=== PATIENT | male | born 1975 | race Caucasian/White ===

== ENCOUNTER 2018-02-03 15:20 | Emergency (ER) | payer MEDICAID ==
[2018-02-03 15:28] VITALS: BP 104/66
[2018-02-03] MEDS ORDERED: NORMAL SALINE 1000 ML 1,000 ML IV PRN (15:35)
[2018-02-03] MEDS ORDERED: INSULIN LISPRO 100 UNIT/ML 3 ML VIAL SUBCUT ONE (15:39)
--- NOTE | 2018-02-03 15:39 | ER Document Report ---
ED Medical Screen (RME) - General Chief Complaint: Medication Refill Stated Complaint: MEDICATION REFILL Notes: Patient is a 42-year-old male, past medical history well-controlled type 1 diabetes with insulin pump, presents after he has been out of his Humalog for his insulin pump for the past 12 hours. He tried calling his primary care physician and personal lines sales rep, but they did not refill the insulin. He was told to go the ER for further evaluation. Patient's Accu-Chek is 336 on arrival to the ER. PE: Tachycardia, RLQ insulin reservoir I have greeted and performed a rapid initial assessment of this patient. A comprehensive ED assessment and evaluation of the patient, analysis of test results and completion of the medical decision making process will be conducted by additional ED providers. TRAVEL OUTSIDE OF THE [place] IN LAST 30 DAYS: No - Related Data Allergies/Adverse Reactions: No Known Allergies Allergy (Unverified 02/03/18 15:22) Past Medical History Endocrine Medical History: Reports: Hx Diabetes Mellitus Type 1 Past Surgical History: Reports: Hx Orthopedic Surgery - finger Physical Exam - Vital signs Vitals: Temp Pulse Resp BP Pulse Ox 98.0 F 105 H 20 104/66 97 02/03/18 15:25 02/03/18 15:25 02/03/18 15:25 02/03/18 15:25 02/03/18 15:25 Course - Vital Signs Vital signs: Temp Pulse Resp BP Pulse Ox 98.0 F 105 H 20 104/66 97 02/03/18 15:25 02/03/18 15:25 02/03/18 15:25 02/03/18 15:25 02/03/18 15:25 Doctor's Discharge - Discharge Referrals: WILLIAM WALTON DO [Primary Care Provider] - Follow up as needed
--- NOTE | 2018-02-03 16:31 | ER Document Report ---
ED General - General Chief Complaint: Medication Refill Stated Complaint: MEDICATION REFILL Time Seen by Provider: 02/03/18 15:40 Mode of Arrival: Ambulatory Information source: Patient Notes: This is a 42-year-old man with a history of insulin requiring diabetes who ran out of his diabetic medicine and comes in wanting a refill. The patient apparently has been in contact with her doctor and is in between doctors but has been notifying his previous physician for refill as well as the physician he has a next update with an is not gotten a prescription. He denies any nausea , vomiting. He was seen in the triage area and felt to be tachycardic and they wanted to give him IV fluids which the patient is adamantly against. He denies chest pain, shortness of breath, abdominal pain, nausea or vomiting. He seems like he is well versed with his disease and states he does not have any of the symptoms that he has had in the past when he has had DKA. TRAVEL OUTSIDE OF THE [place] IN LAST 30 DAYS: No - HPI Onset: Just prior to arrival Onset/Duration: Gradual Quality of pain: No pain Severity: None Pain Level: Denies Associated symptoms: denies: Chest pain, Fever, Nausea, Vomiting, Shortness of breath Exacerbated by: Denies Relieved by: Denies Similar symptoms previously: Yes Recently seen / treated by doctor: No - Related Data Allergies/Adverse Reactions: No Known Allergies Allergy (Verified 02/03/18 15:36) Past Medical History - General Information source: Patient - Social History Smoking Status: Never Smoker Cigarette use (# per day): No Chew tobacco use (# tins/day): No Frequency of alcohol use: None Drug Abuse: None Lives with: Family Family History: None Patient has suicidal ideation: No Patient has homicidal ideation: No - Past Medical History Cardiac Medical History: Reports: None Pulmonary Medical History: Reports: None Endocrine Medical History: Reports: Hx Diabetes Mellitus Type 1 Renal/ Medical History: Denies: Hx Peritoneal Dialysis Past Surgical History: Reports: Hx Orthopedic Surgery - finger Review of Systems - Review of Systems Constitutional: denies: Chills, Fever EENT: No symptoms reported Cardiovascular: No symptoms reported Respiratory: No symptoms reported Gastrointestinal: No symptoms reported Genitourinary: No symptoms reported Male Genitourinary: No symptoms reported Musculoskeletal: No symptoms reported Skin: No symptoms reported Hematologic/Lymphatic: No symptoms reported Neurological/Psychological: No symptoms reported Physical Exam - Vital signs Vitals: Temp Pulse Resp BP Pulse Ox 98.0 F 105 H 20 104/66 97 02/03/18 15:25 02/03/18 15:25 02/03/18 15:25 02/03/18 15:25 02/03/18 15:25 Notes: Physical exam: GENERAL: 42-year-old female, alert and oriented 3, no acute distress HEAD: Atraumatic, normocephalic. EYES: Extraocular movements intact, sclera anicteric, conjunctiva are normal. ENT: Moist mucous membranes. NECK: Normal range of motion, supple EXTREMITIES: Normal range of motion, no pitting or edema. No clubbing or cyanosis. NEUROLOGICAL: Cranial nerves II through XII grossly intact. Normal speech, moving all extremities. PSYCH: Normal mood, normal affect. SKIN: Warm, Dry, normal turgor, no rashes or lesions noted. Course - Re-evaluation Re-evalutation: 02/03/18 16:44 Nurses had prior to my evaluation attempted IV fluids and blood work. Patient has adamantly against it at the time. I sat down with him and had a discussion with him and his family for a while and ultimately he wants a prescription with some needles. He does have follow-up with the primary care doctor. I have given him explicit instructions to return if he has any nausea, vomiting, abdominal pain or feels that he may be slipping in the DKA. 02/03/18 16:45 - Vital Signs Vital signs: Temp Pulse Resp BP Pulse Ox 98.0 F 105 H 20 104/66 97 02/03/18 15:25 02/03/18 15:25 02/03/18 15:25 02/03/18 15:25 02/03/18 15:25 - Laboratory Laboratory results interpreted by me: 02/03/18 15:32 POC Glucose 358 H Discharge - Discharge Clinical Impression: Diabetes Condition: Stable Disposition: HOME, SELF-CARE Additional Instructions: As discussed, continue with insulin. I did call the pharmacy and they are expecting you. I wrote the needles that the pharmacy recommended. Follow-up with your doctor as planned. Return to the emergency room for any nausea, vomiting, not feeling well or any concerns that you may be going into DKA. Prescriptions: Insulin Lispro [Humalog] 100 unit SQ ASDIR PRN #30 ml PRN Reason: Referrals: WILLIAM WALTON DO [Primary Care Provider] - Follow up as needed
== END 2018-02-03 16:34 | disposition home or self-care (01) ==
LOC: ER 15:20
DX: Z76.0 Encounter for issue of repeat prescription (principal); E10.9 Type 1 diabetes mellitus without complications
CPT/HCPCS: 82962; 99281; J1815

== ENCOUNTER 2018-03-09 21:19 | Emergency (ER) | payer MEDICAID ==
[2018-03-09 22:15] VITALS: BP 151/99
[2018-03-09] MEDS ORDERED: INSULIN LISPRO 100 UNIT/ML 3 ML VIAL SUBCUT ONE (22:57)
--- NOTE | 2018-03-09 23:08 | ER Document Report ---
HPI - HPI Pain Level: 4 Notes: Patient is a 42-year-old male with a history of insulin-dependent diabetes who presents to the ED with questing an injection of his Humalog and a prescription for refill as he ran out earlier today. Patient states that his sugars have been running in the 3-400s and is currently 441 taken when I was in the room. Patient states that he knows his illness well and has had a history of DKA in the past, but states that this is not DKA for him. Patient states that he is eating and drinking without any difficulties. He is urinating normally and having normal bowel movements. He denies any drug allergies. He has no other concerns or complaints at this time. Denies any headache, fever, neck pain, URI , sore throat, chest pain, palpitations, syncope, cough, shortness of breath, wheeze, dyspnea, abdominal pain, nausea/vomiting/diarrhea, urinary retention, dysuria, hematuria, or rash. - ROS Systems Reviewed and Negative: Yes All other systems reviewed and negative - CONSTITUTIONAL Constitutional: DENIES: Fever, Chills - EENT EENT: DENIES: Sore Throat, Ear Pain, Eye problems - NEURO Neurology: DENIES: Headache, Weakness, Vision blurred, Dizzinesss / Vertigo - CARDIOVASCULAR Cardiovascular: DENIES: Chest pain - RESPIRATORY Respiratory: DENIES: Trouble Breathing, Coughing - GASTROINTESTINAL Gastrointestinal: DENIES: Abdominal Pain, Black / Bloody Stools - URINARY Urinary: DENIES: Dysuria, Urgency, Frequency - MUSCULOSKELETAL Musculoskeletal: DENIES: Extremity pain Past Medical History - Social History Smoking Status: Unknown if Ever Smoked Family History: None Patient has suicidal ideation: No Patient has homicidal ideation: No Endocrine Medical History: Reports: Hx Diabetes Mellitus Type 1 Renal/ Medical History: Denies: Hx Peritoneal Dialysis Past Surgical History: Reports: Hx Orthopedic Surgery - finger Vertical Provider Document - CONSTITUTIONAL Agree With Documented VS: Yes Notes: PHYSICAL EXAMINATION: GENERAL: Well-appearing, well-nourished and in no acute distress. LUNGS: Breath sounds clear to auscultation bilaterally and equal. No wheezes rales or rhonchi. HEART: Regular rate and rhythm without murmurs, rubs, gallops. ABDOMEN: Soft, nontender, nondistended abdomen. No guarding, no rebound. No masses appreciated. Normal bowel sounds present. No CVA tenderness bilaterally. Musculoskeletal: FROM to passive/active. Strength 5+/5. Extremities: No cyanosis, clubbing, or edema b/l. Peripheral pulses 2+. Capillary refill less than 3 seconds. NEUROLOGICAL: Normal speech, normal gait. PSYCH: excitable, anxious mood. normal affect. SKIN: Warm, Dry, normal turgor, no rashes or lesions noted. - INFECTION CONTROL TRAVEL OUTSIDE OF THE [place] IN LAST 30 DAYS: No Course - Re-evaluation Re-evalutation: 03/09/18 23:05 Patient is an afebrile, well-hydrated, 42-year-old male who presents to the ED with elevated glucose and requesting medication refill of his Humalog. Vitals are acceptable without any significant tachycardia, tachypnea, or hypoxia. PE is otherwise unremarkable. Patient's glucose at the bedside was 441 by his meter and 430 by ours. Patient is nontoxic-appearing and is tolerating p.o. without difficulties. Patient appears well. Pt adamantly declined any blood work or urine. Low suspicion for any DKA, sepsis, meningitis, severe dehydration, respiratory compromise, or other systemic emergent condition at this time. Patient is aware that condition can change from initial presentation and he needs to monitor symptoms closely and seek medical attention with any acute changes. 20 units of Humalog was given subc today. I will send him home with a prescription for Humalog that he may use for his insulin pump. Recheck with your PCM in 3-5 days. Return to the ED with any worsening/concerning symptoms otherwise as reviewed in discharge. Patient is in agreement. - Vital Signs Vital signs: Temp Pulse Resp BP Pulse Ox 98.0 F 111 H 16 151/99 H 99 03/09/18 22:14 03/09/18 22:14 03/09/18 22:14 03/09/18 22:14 03/09/18 22:14 Discharge - Discharge Clinical Impression: Elevated glucose Condition: Stable Disposition: HOME, SELF-CARE Additional Instructions: Maintain adequate fluid and food intake Take home medications as directed Low sugar/carb diet Exercise regularly Weight control Monitor blood glucose daily and keep a log Monitor symptoms for any acute changes Recheck with your PCM in 3-5 days Return to the ED with any worsening symptoms and/or development of fever, headache, chest pain, palpitations, syncope, shortness of breath, trouble breathing, abdominal pain, n/v/d, blood in stool/urine, loss of control of bowel /bladder, urinary retention, muscle weakness/paralysis, numbness/tingling, or other worsening symptoms that are concerning to you. Prescriptions: Insulin Lispro [Humalog] 100 unit SQ ASDIR PRN #1 cartridge PRN Reason: Referrals: WILLIAM WALTON DO [Primary Care Provider] - Follow up in 3-5 days
== END 2018-03-09 23:30 | disposition home or self-care (01) ==
LOC: ER 21:19
DX: E10.65 Type 1 diabetes mellitus with hyperglycemia (principal); Z79.4 Long term (current) use of insulin
CPT/HCPCS: 99282; 82962; J1815

== ENCOUNTER 2018-04-19 02:54 | Emergency (ER) | payer MEDICAID ==
[2018-04-19 03:14] VITALS: BP 145/87
--- NOTE | 2018-04-19 03:54 | ER Document Report ---
ED General - General TRAVEL OUTSIDE OF THE [place] IN LAST 30 DAYS: No - General Chief Complaint: Medication Refill Stated Complaint: NEEDS MEDICATION REFILL Time Seen by Provider: 04/19/18 03:41 Notes: Patient is a 43-year-old male who is a type I diabetic that comes to the emergency department for chief complaint of running out of insulin. He states that for the past 2 months he has had a lot of problems initially he was discharged from his primary care provider because he states that they were trying to cut down on their patient volume, he states that he initially was supposed to be seen at [facility] but now they no longer take his insurance, he states he does have an appointment now for June 06 with primary care and to continue to see endocrinology to manage his pump but he needs insulin to get him through until then. He states his blood glucose has started climbing up this evening, however he states he does not have any symptoms of DKA, he denies dizziness, nausea or vomiting, blurred vision, and he states he checked his urine just prior to leaving the house and there were no ketones. He denies any other complaints. (EZEQUIEL ORANTES) - Related Data Allergies/Adverse Reactions: No Known Allergies Allergy (Verified 02/03/18 15:36) Past Medical History - General Information source: Patient - Social History Smoking Status: Never Smoker Frequency of alcohol use: None Drug Abuse: None Lives with: Family Family History: None Endocrine Medical History: Reports: Hx Diabetes Mellitus Type 1 Renal/ Medical History: Denies: Hx Peritoneal Dialysis Past Surgical History: Reports: Hx Orthopedic Surgery - finger - Immunizations Immunizations up to date: Yes Hx Diphtheria, Pertussis, Tetanus Vaccination: Yes Review of Systems - Review of Systems Constitutional: No symptoms reported EENT: No symptoms reported Cardiovascular: No symptoms reported Respiratory: No symptoms reported Gastrointestinal: No symptoms reported Genitourinary: No symptoms reported Male Genitourinary: No symptoms reported Musculoskeletal: No symptoms reported Skin: No symptoms reported Hematologic/Lymphatic: No symptoms reported Neurological/Psychological: No symptoms reported Physical Exam - Vital signs Vitals: Temp Pulse Resp BP Pulse Ox 98.0 F 87 20 145/87 H 99 04/19/18 03:02 04/19/18 03:02 04/19/18 03:02 04/19/18 03:02 04/19/18 03:02 - Notes Notes: GENERAL: Alert, interacts well. No acute distress. HEAD: Normocephalic, atraumatic. EYES: Pupils equal, round, and reactive to light. Extraocular movements intact. ENT: Oral mucosa moist, tongue midline. Normal oropharyngeal exam. NECK: Full range of motion. Supple. Trachea midline. LUNGS: Clear to auscultation bilaterally, no wheezes, rales, or rhonchi. No respiratory distress. HEART: Regular rate and rhythm. No murmur ABDOMEN: Soft, non-tender. Non-distended. Bowel sounds present in all 4 quadrants. EXTREMITIES: Moves all 4 extremities spontaneously. No edema, normal radial and dorsalis pedis pulses bilaterally. No cyanosis. BACK: no cervical, thoracic, lumbar midline tenderness. No saddle anesthesia, normal distal neurovascular exam. NEUROLOGICAL: Alert and oriented x3. Normal speech. [cranial nerves II through XII grossly intact]. PSYCH: Normal affect, normal mood. SKIN: Warm, dry, normal turgor. No rashes or lesions noted. (EZEQUIEL ORANTES) Course - Re-evaluation Re-evalutation: Patient appears very knowledgeable about his medications, he is able to give me very detailed information about his insulin use and his difficulty recently with primary care provider and endocrinology causing him to run out of his medications. He does have a follow-up appointment already scheduled. He has hyperglycemia with blood glucose greater than 400, recommended labs to make sure he has no evidence of acidosis, he states he already checked his urine at home and it does not have any ketones, he does not have any symptoms at this time including no nausea or vomiting, he has no tachycardia, his mucous membranes are moist. Patient again declined with discussion of this. He states that he needs his nighttime dose of insulin, he has been detailed instructions for request of insulin prescription, he states he will come back if he worsens in any way. Because of patient's level of education and knowledge of symptoms to return for this was provided for patient and he was discharged with return precautions. Patient and state gratefulness for care. (EZEQUIEL ORANTES) - Vital Signs Vital signs: Temp Pulse Resp BP Pulse Ox 98.0 F 87 20 145/87 H 99 04/19/18 03:02 04/19/18 03:02 04/19/18 03:02 04/19/18 03:04/19/18 03:02 - Laboratory Laboratory results interpreted by me: 04/19/18 03:10 POC Glucose 468 H* Discharge - Discharge Clinical Impression: Insulin dependent diabetes mellitus, Has run out of medications Condition: Stable Disposition: HOME, SELF-CARE Additional Instructions: Use your insulin as prescribed. Follow-up with both primary care and endocrinology as planned for additional evaluation and management of your pump and diabetes. Return if you worsen including weakness, dizziness, blurry vision, nausea or vomiting, or any other concerning symptoms. Prescriptions: Insulin Lispro [Humalog Insulin 100 Unit/1 ml 3 ml Vial] 100 unit SUBCUT ASDIR PRN #90 ml PRN Reason: Referrals: WILLIAM WALTON DO [NO LOCAL MD] - Follow up as needed
[2018-04-19] MEDS ORDERED: INSULIN REG, HUMAN 100 UNIT/ML 3 ML VIAL (PYX) SUBCUT ONE (04:03)
== END 2018-04-19 04:19 | disposition home or self-care (01) ==
LOC: ER 02:54
DX: Z76.0 Encounter for issue of repeat prescription (principal); E10.9 Type 1 diabetes mellitus without complications; Z79.4 Long term (current) use of insulin
CPT/HCPCS: 99281; 82962; J1815

== ENCOUNTER 2018-08-26 18:14 | Emergency (ER) | payer MEDICAID ==
--- NOTE | 2018-08-26 19:52 | ER Document Report ---
HPI - HPI Patient complains to provider of: Medication refill Time Seen by Provider: 08/26/18 19:31 Onset: This morning Pain Level: 0 Context: Patient states that there was a mixup at his doctor's office and they only gave him one vial prescription of his insulin for his insulin pump. Patient states that he ran out of insulin today. Patient did attempt to call the doctor's office and he does have an appointment scheduled for Thursday but needs medicine to get him till Thursday. Patient states that he checked his urine and there was no ketones at home. Patient has no concern for any DKA or complication from elevated blood sugar at this time. Patient is only requesting a refill of his insulin and does not want to have any additional tests or labs performed tonight. Associated Symptoms: None. denies: Nonproductive cough, Productive cough, Fever, Headache, Nausea, Vomiting Exacerbated by: Denies Relieved by: Denies Similar symptoms previously: Yes Recently seen / treated by doctor: No - ROS ROS below otherwise negative: Yes Systems Reviewed and Negative: Yes All other systems reviewed and negative - CONSTITUTIONAL Constitutional: DENIES: Fever, Chills - EENT EENT: DENIES: Sore Throat, Congestion - CARDIOVASCULAR Cardiovascular: DENIES: Chest pain - RESPIRATORY Respiratory: DENIES: Trouble Breathing, Coughing - GASTROINTESTINAL Gastrointestinal: DENIES: Abdominal Pain, Nausea, Patient vomiting - MUSCULOSKELETAL Musculoskeletal: DENIES: Back Pain - DERM Skin Color: Normal Skin Problems: None Past Medical History - General Information source: Patient - Social History Smoking Status: Former Smoker Frequency of alcohol use: None Drug Abuse: None Lives with: Family Family History: None Patient has suicidal ideation: No Patient has homicidal ideation: No Endocrine Medical History: Reports: Hx Diabetes Mellitus Type 1 Renal/ Medical History: Denies: Hx Peritoneal Dialysis Past Surgical History: Reports: Hx Orthopedic Surgery - finger - Immunizations Immunizations up to date: Yes Hx Diphtheria, Pertussis, Tetanus Vaccination: Yes Vertical Provider Document - CONSTITUTIONAL Agree With Documented VS: Yes Exam Limitations: No Limitations General Appearance: WD/WN, No Apparent Distress - INFECTION CONTROL TRAVEL OUTSIDE OF THE [place] IN LAST 30 DAYS: No - HEENT HEENT: Atraumatic, Normal ENT Exam, Normocephalic - NECK Neck: Normal Inspection, Supple - RESPIRATORY Respiratory: Breath Sounds Normal, No Respiratory Distress - CARDIOVASCULAR Cardiovascular: Regular Rhythm, No Murmur, Tachycardia - GI/ABDOMEN Gastrointestinal: Abdomen Soft - BACK Back: Normal Inspection - MUSCULOSKELETAL/EXTREMETIES Musculoskeletal/Extremeties: HERMES GONZALES - NEURO Level of Consciousness: Awake, Alert, Appropriate Motor/Sensory: No Motor Deficit - DERM Integumentary: Warm, Dry, No Rash Course - Re-evaluation Re-evalutation: 08/26/18 19:55 Patient advised that given his history of diabetes and his tachycardia that lab work, EKG and IV fluid administration would be recommended at this time to further evaluate his condition. Patient denies any symptoms at this time. Patient states that whenever he is out of his medication that causes his blood sugar to go up and then his heart rate increases. Patient denies any chest pain dyspnea abdominal pain nausea or vomiting. Patient denies any fever. Patient denies any concerns for DKA at this time is adamantly refusing any laboratory tests or treatments. Patient states that he only wants a prescription for refill of his insulin. Patient states he has an appointment with his primary doctor on Thursday for refill of his usual medications. Patient states that there was a mess up at the office and he only received 1 vial of his insulin in which he has now run out and he thought that he had a refill and found out today that he did not. Patient has good follow-up. Patient agrees to sign refusal treatment form at this time. Patient with a family member at bedside. Will refill patient's medications at this time. Good return precautions given. - Vital Signs Vital signs: Temp Pulse Resp BP Pulse Ox 97.7 F 119 H 16 152/99 H 96 08/26/18 18:28 08/26/18 18:28 08/26/18 18:28 08/26/18 18:28 08/26/18 18:28 Discharge - Discharge Clinical Impression: Insulin dependent diabetes mellitus, Tachycardia, Medication refill Condition: Stable Disposition: HOME, SELF-CARE Additional Instructions: Return immediately for any new or worsening symptoms, or if you decide that you would like to have laboratory testing and IV fluid administration to further evaluate your condition Followup with your primary care provider on Thursday as planned Prescriptions: Insulin Lispro [Humalog Insulin (Lispro) 100 unit/mL] 1 unit INJ ASDIR PRN #1 vial PRN Reason: Referrals: WILBER HILL MD [ACTIVE STAFF] - 08/30/18
[2018-08-26 20:02] VITALS: BP 145/110
== END 2018-08-26 20:02 | disposition home or self-care (01) ==
LOC: ER 18:14
DX: E10.9 Type 1 diabetes mellitus without complications (principal); R00.0 Tachycardia, unspecified; Z79.4 Long term (current) use of insulin; Z96.41 Presence of insulin pump (external) (internal)
CPT/HCPCS: 99281

== ENCOUNTER 2019-06-26 16:05 | Emergency (ER) | payer MEDICAID ==
[2019-06-26] MEDS ORDERED: HALOPERIDOL LACTATE INJ 5 MG/1 ML VIAL IM ONE (16:30)
--- NOTE | 2019-06-26 16:37 | ER Document Report ---
ED General - General TRAVEL OUTSIDE OF THE [place] IN LAST 30 DAYS: No <WILLIAM ASKEW - Last Filed: 06/26/19 18:19> <AQUILES LENNON - Last Filed: 06/26/19 21:57> - General Chief Complaint: Low Blood Sugar Stated Complaint: LOW BLOOD SUGAR Time Seen by Provider: 06/26/19 16:22 Primary Care Provider: JOE DODGE MD [Primary Care Provider] - Follow up as needed - [facility] Notes: 44-year-old insulin-dependent diabetic reports to ED for evaluation of altered mental status associated with hypoglycemia by EMS. Family members report that patient was in his usual state of health earlier in the day. Other family members had taking a nap and found that the patient was unarousable cool to touch a palpable pulse. Stick blood sugar was around 35. They were unable to get anything into the patient orally and EMS was called. EMS administered 50% dextrose IV and got sugar up above 100. At that point the patient awakened but was combative. They attempted to physically restrain him with little success. They subsequently administered IM ketamine. He was thereafter transported to the emergency department. Limited history is been obtained from EMS but I am unable to elicit any direct history from the patient and family members have not yet arrived. (WILLIAM ASKEW) - Related Data Allergies/Adverse Reactions: No Known Allergies Allergy (Verified 08/26/18 19:42) Past Medical History - General Information source: Emergency Med Personnel Cannot obtain history due to: Altered mental status - Social History Smoking Status: Unknown if Ever Smoked Chew tobacco use (# tins/day): No Frequency of alcohol use: None Drug Abuse: None Lives with: Family Family History: None, Reviewed & Not Pertinent Patient has suicidal ideation: No Patient has homicidal ideation: No Endocrine Medical History: Reports: Hx Diabetes Mellitus Type 1 Renal/ Medical History: Denies: Hx Peritoneal Dialysis Past Surgical History: Reports: Hx Orthopedic Surgery - finger - Immunizations Immunizations up to date: Yes Hx Diphtheria, Pertussis, Tetanus Vaccination: Yes <WILLIAM ASKEW - Last Filed: 06/26/19 18:19> Review of Systems - Review of Systems -: Yes ROS unobtainable due to patient's medical condition <WILLIAM ASKEW - Last Filed: 06/26/19 18:19> Physical Exam <WILLIAM ASKEW - Last Filed: 06/26/19 18:19> - Vital signs Vitals: Resp 18 06/26/19 16:12 Notes: GENERAL: Moderately obese male appearing approximately stated age who is currently obtunded with sonorous respirations. SKIN: Skin is cool pale and dry. HEAD: Normocephalic atraumatic. EYES: Pupils are small equal and sluggishly reactive to light. Gaze is conjugate. Conjunctivae and sclerae clear. Eyes open to painful stimuli only. EARS: CANALS AND TMS CLEAR. NOSE: CLEAR. MOUTH: Gag reflex intact. Moist mucosa. Good dentition. No stridor or edema. No drooling. NECK: Supple. No masses or thyromegaly. No adenopathy. Carotids 2+ without bruits. No JVD. BACK: Symmetrical without tenderness. CHEST: Respirations unlabored. Breath sounds clear and symmetrical. HEART: Regular rhythm. No murmur gallop or rub. ABDOMEN: Soft nontender without masses, organomegaly or rebound. Bowel sounds normally active. No bruits. GENITALIA: Deferred. EXTREMITIES: Broken superficial varicosities around both ankles. No edema. No calf tenderness. Cap refill less than 1.5 seconds. Dorsalis pedis and posterior tibial pulses 3+ and symmetrical. * NEUROLOGICAL: GCS 9 2GENERAL: Frail elderly female appearing in no acute distress. SKIN: Pale. Good turgor. Ecchymoses of pretibial area bilaterally. HEAD: Bitemporal wasting. EYES: PERRLA. Conjunctivae pale and sclerae clear. EARS: CANALS AND TMS CLEAR. NOSE: CLEAR. MOUTH: Moist mucosa. Good dentition. No stridor or edema. No drooling. THROAT: Clear. NECK: Supple. No masses or thyromegaly. No adenopathy. Carotids 2+ without bruits. No JVD. BACK: Symmetrical without tenderness. Minimal dorsal kyphosis present. CHEST: Respirations unlabored. Breath sounds with symmetrical dry rales throughout. HEART: Regular rhythm. No murmur. S3 gallop present. No rub. ABDOMEN: Soft nontender without masses, organomegaly or rebound. Bowel sounds normally active. No bruits. GENITALIA: Deferred. 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 2+ pretibial edema bilaterally. No calf tenderness. Cap refill less than 1.5 seconds. Dorsalis pedis and posterior tibial pulses 3+ and symmetrical. * NEUROLOGICAL: GCS 9 (eyes 2 plus verbal 2 plus motor 5 ). Moves extremities symmetrically. (WILLIAM ASKEW) Course - Laboratory Result Diagrams: 06/26/19 16:30 06/26/19 16:30 - EKG Interpretation by Me EKG shows normal: Sinus rhythm - 65, Benld - 90, Intervals - normal Rate: Normal Rhythm: NSR <WILLIAM ASKEW - Last Filed: 06/26/19 18:19> - Laboratory Result Diagrams: 06/26/19 16:30 06/26/19 16:30 <AQUILES LENNON - Last Filed: 06/26/19 21:57> - Re-evaluation Re-evalutation: 06/26/19 19:[address] Askew, patient reexamined, patient was initially sleeping, relatively easily awakened, he was disoriented to place and time however easily reoriented. Still repeats that he did not have anything to eat today and his blood sugar was low so that is why he was confused earlier. Denies being aggressive, family members then come to the room and confirm to him that he was being aggressive as does Dr. Askew who gave him Haldol after arrival. CT scan of the head is negative, no focal deficits, patient will be fed and we will attempt to ambulate him. If patient remains neurologically intact and blood sugar remains normal patient will be discharged home. Did have an extensive discussion with him about the fact that his urine drug screen is positive for opiates although I see no record that he is prescribed these, patient states they are prescribed by in [place] but he cannot tell me who, check of the records does not reveal anybody actively prescribe him narcotics at this time, states that he has not been prescribed narcotics for his back pain in several months. Discussed with both of them that it is incredibly dangerous for a diabetic to be using opiates that are not prescribed to them. 06/26/19 19:19 CBC shows leukocytosis at 12.7, coags normal, VBG normal, glucose normal at 137 after EMS gave him dextrose, ammonia undetectable, urinalysis shows trace ketones, urine drug screen shows opiates and marijuana, EKG is nonischemic. 06/26/19 21:53 Patient is now wide awake, able to ambulate, able to sit on the bed and urinate without difficulty. Patient has been able to eat here. Patient's blood sugar has steadily risen, patient has been able to put his insulin pump back on and started working again. Once again I did discuss with the patient and his that I am concerned by the positive urine drug screen for opiates and the fact that he states he is having medications prescribed but I see no record of this in the computer and that he is unable to tell me from home he is receiving these medications. Also discussed with patient that it is very important that he follow-up with his primary care physician as an outpatient to continue to fine-tune his insulin pump. states that he has been missing his appointments recently. Currently presentation is consistent with hypoglycemic seizure. (AQUILES LENNON) - Vital Signs Vital signs: Temp Pulse Resp BP Pulse Ox 97.7 F 22 H 144/90 H 99 06/26/19 16:54 06/26/19 19:23 06/26/19 19:23 06/26/19 19:23 - Laboratory Laboratory results interpreted by me: 06/26/19 06/26/19 06/26/19 16:09 16:30 16:30 WBC 12.7 H Lymph % (Auto) 8.7 L Absolute Neuts (auto) 10.4 H Seg Neutrophils % 82.0 H Glucose 137 H POC Glucose 139 H Ammonia Urine Ketones Urine Urobilinogen 06/26/19 06/26/19 06/26/19 16:55 17:10 19:30 WBC Lymph % (Auto) Absolute Neuts (auto) Seg Neutrophils % Glucose POC Glucose 275 H Ammonia < 8.7 L Urine Ketones TRACE H Urine Urobilinogen 2.0 H 06/26/19 21:12 WBC Lymph % (Auto) Absolute Neuts (auto) Seg Neutrophils % Glucose POC Glucose 300 H Ammonia Urine Ketones Urine Urobilinogen Discharge <WILLIAM ASKEW - Last Filed: 06/26/19 18:19> <AQUILES LENNON - Last Filed: 06/26/19 21:57> - Discharge Clinical Impression: Hypoglycemia due to type 1 diabetes mellitus, Opiate use Condition: Stable Disposition: HOME, SELF-CARE Additional Instructions: It is important that you eat before you go to bed. It is important that you check your blood sugar on a regular basis including before you go to bed. If your blood sugar is low you need to eat something before you go to sleep. It is also important that you eat throughout the day while you are awake. You have an insulin pump which means your body is steadily receiving insulin whether you eat or not. This puts you at high risk for going into another diabetic coma or having another seizure due to low blood sugar if you do not eat. I am also concerned because your urine drug screen showed that you have opiates in your system. You have told me that you are prescribed these however I cannot find any evidence in the computer of a doctor prescribing these for you recently. Your is also unaware of any doctor continuing to prescribe these for you. If you are using narcotic medication that you are not prescribed it puts you at a high risk for complications from your diabetes particularly because if you take opiates and they make you fall asleep you might not eat and then you could from low blood sugar. You do need to follow-up with your primary care physician to make sure you are receiving an appropriate dose of insulin through your insulin pump. Referrals: JOE DODGE MD [Primary Care Provider] - Follow up as needed
[2019-06-26 16:47] LABS: VENOUS BLOOD BASE EXCESS 3.3 mmol/L; VENOUS BLOOD HCO3 31.3 mmol/L (20-32); VENOUS BLOOD PCO2 61.5 mmHg (35-63); VENOUS BLOOD PH 7.33 (7.30-7.42)
[2019-06-26 16:50] LABS: ABSOLUTE BASOPHILS # (AUTO) 0.1 10^3/uL (0.0-0.2); ABSOLUTE EOSINOPHILS # (AUTO) 0.5 10^3/uL (0.0-0.6); ABSOLUTE LYMPHOCYTES (AUTO) 1.1 10^3/uL (0.5-4.7); ABSOLUTE MONOCYTES (AUTO) 0.6 10^3/uL (0.1-1.4); ABSOLUTE NEUT (AUTO) 10.4 10^3/uL (1.7-8.2); BASOPHILS % (AUTO) 0.6 % (0-2); EOSINOPHILS % (AUTO) 3.6 % (0-6); HEMATOCRIT 43.9 % (37.9-51.0); HEMOGLOBIN 14.9 g/dL (13.5-17.0); INTERNATIONAL RATION (INR) 0.94; LYMPHOCYTES % (AUTO) 8.7 % (13-45); MEAN CORPUSCULAR HEMOGLOBIN 27.7 pg (27.0-33.4); MEAN CORPUSCULAR HGB CONC 33.8 g/dL (32.0-36.0); MEAN CORPUSCULAR VOLUME 82 fl (80-97); MONOCYTES % (AUTO) 5.1 % (3-13); PLATELET COUNT 287 10^3/uL (150-450); PROTHROMBIN TIME 12.5 SEC (11.4-15.4); RED BLOOD COUNT 5.36 10^6/uL (4.35-5.55); RED CELL DISTRIBUTION WIDTH 13.7 % (11.5-14.0); TOTAL CELLS COUNTED % (AUTO) 100 %; WHITE BLOOD COUNT 12.7 10^3/uL (4.0-10.5)
[2019-06-26 17:07] LABS: ALBUMIN 3.8 g/dL (3.5-5.0); ALKALINE PHOSPHATASE 85 U/L (38-126); ANION GAP 10 (5-19); ASPARTATE AMINO TRANSFERASE 25 U/L (17-59); BILIRUBIN,DIRECT 0.1 mg/dL (0.0-0.4); BILIRUBIN,TOTAL 0.3 mg/dL (0.2-1.3); BLOOD UREA NITROGEN 14 mg/dL (7-20); CALCIUM 8.9 mg/dL (8.4-10.2); CARBON DIOXIDE 29 mmol/L (22-30); CHLORIDE 99 mmol/L (98-107); GLUCOSE 137 mg/dL (75-110); POTASSIUM 3.6 mmol/L (3.6-5.0)
[2019-06-26 17:09] LABS: AMORPHOUS SEDIMENT,URINE TRACE /HPF; APPEARANCE,URINE SLIGHTLY-CLOUDY; BILIRUBIN,URINE NEGATIVE (NEGATIVE); COLOR,URINE YELLOW; GLUCOSE, URINE NEGATIVE (NEGATIVE); KETONES,URINE TRACE mg/dL (NEGATIVE); LEUKOCYTE ESTERASE,URINE NEGATIVE (NEGATIVE); NITRITE,URINE NEGATIVE (NEGATIVE); PROTEIN,URINE NEGATIVE (NEGATIVE); URINE SPECIFIC GRAVITY 1.018
[2019-06-26 17:22] LABS: URINE AMPHETAMINES SCREEN NEGATIVE; URINE BARBITURATES SCREEN NEGATIVE; URINE BENZODIAZEPINES SCREEN NEGATIVE; URINE COCAINE SCREEN NEGATIVE; URINE MARIJUANA (THC) SCREEN UNCONFIRMED POSITIVE; URINE METHADONE SCREEN NEGATIVE; URINE PHENCYCLIDINE SCREEN NEGATIVE
--- NOTE | 2019-06-26 18:57 | RADIOLOGY REPORT (SQ) ---
EXAM DESCRIPTION: CT HEAD WITHOUT COMPLETED DATE/TIME: 06/26/2019 6:31 pm REASON FOR STUDY: ams COMPARISON: None. TECHNIQUE: Axial images acquired through the brain without intravenous contrast. Images reviewed wi th bone, brain and subdural windows. Images stored on PACS. All CT scanners at this facility use dose modulation, iterative reconstruction, and/or weight based d osing when appropriate to reduce radiation dose to as low as reasonably achievable (ALARA). [facility]: Dose Right [facility]: CareDose [facility]: Dose Right [facility]: Teradose 4D [facility]: Smart [place] RADIATION DOSE: CT Rad equipment meets quality standard of care and radiation dose reduction techniq ues were employed. CTDIvol: 53.2 mGy. DLP: 1097 mGy-cm. mGy. LIMITATIONS: None. FINDINGS: VENTRICLES: Normal size and contour. CEREBRUM: No masses. No hemorrhage. No midline shift. No evidence for acute infarction. Normal gra y/white matter differentiation. No areas of low density in the white matter. CEREBELLUM: No masses. No hemorrhage. No alteration of density. No evidence for acute infarction. EXTRAAXIAL SPACES: No fluid collections. No masses. ORBITS AND GLOBE: No intra- or extraconal masses. Normal contour of globe without masses. CALVARIUM: No fracture. PARANASAL SINUSES: Mucosal thickening noted within the maxillary, ethmoid, in frontal sinuses consist ent with chronic sinusitis. Nasal septal deviation left. SOFT TISSUES: Chronic scarring of the scalp over the right parietal region. OTHER: No other significant finding. IMPRESSION: CHRONIC SINUSITIS. OLD POSTTRAUMATIC CHANGE OR SCARRING OF THE SCALP OVER THE RIGHT PAR IETAL REGION. NORMAL BRAIN CT WITHOUT CONTRAST. EVIDENCE OF ACUTE STROKE: NO. COMMENT: Quality ID # [id number]: Final reports with documentation of one or more dose reduction techniques (e.g., Automated exposure control, adjustment of the mA and/or kV according to patient size, use of iterative reconstruction technique) TECHNICAL DOCUMENTATION: JOB ID: [id number] SC-69 2010 [employer]- All Rights Reserved Reading location - IP/workstation name: [email or web address]
[2019-06-26] MEDS ORDERED: INSULIN REG, HUMAN 100 UNIT/ML 3 ML VIAL (PYX) SUBCUT ONE (22:29)
--- NOTE | 2019-06-26 23:17 | EKG REPORT ---
SEVERITY:- NORMAL ECG - SINUS RHYTHM : Confirmed by: Tiara Ma 26-Jun-2019 23:16:09
[2019-06-26] MEDS ORDERED: ASPIRIN 81 MG TABLET, CHEWABLE PO ONE (23:20)
[2019-06-26] MEDS ORDERED: NORMAL SALINE 1000 ML 1,000 ML IV ONE (23:20)
[2019-06-26] MEDS ORDERED: ACETAMINOPHEN 325 MG TABLET PO ONE (23:20)
[2019-06-27 01:14] VITALS: BP 142/73
== END 2019-06-27 01:24 | disposition home or self-care (01) ==
LOC: ER 16:05
DX: E10.649 Type 1 diabetes mellitus with hypoglycemia without coma (principal); Z96.41 Presence of insulin pump (external) (internal); J34.89 Other specified disorders of nose and nasal sinuses; I10 Essential (primary) hypertension; R45.4 Irritability and anger; R00.0 Tachycardia, unspecified; R51 Headache; E66.9 Obesity, unspecified; I83.93 Asymptomatic varicose veins of bilateral lower extremities; R23.1 Pallor; R58 Hemorrhage, not elsewhere classified; R60.0 Localized edema; R41.0 Disorientation, unspecified
CPT/HCPCS: 93005; 36415; 87040; 82962; 80307 ×2; 82140; 85025; 85610; 80053; 81001; 82803; 83605; 70450; 93010; J3490; J1630; J7030

== ENCOUNTER 2019-07-25 19:49 | Emergency (ER) | payer MEDICAID ==
[2019-07-25 20:12] VITALS: BP 148/89
--- NOTE | 2019-07-25 20:45 | ER Document Report ---
HPI - HPI Patient complains to provider of: Med refill Time Seen by Provider: 07/25/19 20:37 Onset: This evening Pain Level: 0 Context: Patient presents requesting medication refill for his insulin. Patient states he just ran out this evening. Patient states that he is wanting to switch primary care providers because he does not like the office staff at his previous primary doctor's office. Patient does not have an appointment for 2 months out with a new provider. Patient is requesting a prescription be written immediately so he can go directly to the pharmacy before they closed in 20 minutes. Patient states that he needs the insulin for his pump. Patient states he has a long history of diabetes and is not having any other complication. Associated Symptoms: None Exacerbated by: Denies Relieved by: Denies Similar symptoms previously: Yes Recently seen / treated by doctor: No - ROS ROS below otherwise negative: Yes Systems Reviewed and Negative: Yes All other systems reviewed and negative - CONSTITUTIONAL Constitutional: DENIES: Fever, Chills - NEURO Neurology: DENIES: Weakness - GASTROINTESTINAL Gastrointestinal: DENIES: Abdominal Pain, Nausea, Patient vomiting - DERM Skin Color: Normal Skin Problems: None Past Medical History - General Information source: Patient - Social History Smoking Status: Never Smoker Frequency of alcohol use: None Drug Abuse: None Occupation: None Lives with: Family Family History: None, Reviewed & Not Pertinent Patient has suicidal ideation: No Patient has homicidal ideation: No Endocrine Medical History: Reports: Hx Diabetes Mellitus Type 1 Renal/ Medical History: Denies: Hx Peritoneal Dialysis Past Surgical History: Reports: Hx Orthopedic Surgery - finger - Immunizations Immunizations up to date: Yes Hx Diphtheria, Pertussis, Tetanus Vaccination: Yes Vertical Provider Document - CONSTITUTIONAL Agree With Documented VS: Yes Exam Limitations: No Limitations General Appearance: WD/WN, No Apparent Distress - INFECTION CONTROL TRAVEL OUTSIDE OF THE [place] IN LAST 30 DAYS: No - HEENT HEENT: Atraumatic, Normocephalic - NECK Neck: Normal Inspection, Supple - RESPIRATORY Respiratory: Breath Sounds Normal, No Respiratory Distress - CARDIOVASCULAR Cardiovascular: Regular Rate, Regular Rhythm - GI/ABDOMEN Gastrointestinal: Abdomen Soft - MUSCULOSKELETAL/EXTREMETIES Musculoskeletal/Extremeties: MAEW - NEURO Level of Consciousness: Awake, Alert, Appropriate Motor/Sensory: No Motor Deficit - DERM Integumentary: Warm, Dry Course - Re-evaluation Re-evalutation: 07/25/19 20:45 Patient very belligerent during encounter. Patient advised that his primary doctor should write the refills of his medication. Patient also advised that if he is going to switch primary doctor's that he should get established with 1 before refusing to follow-up with his current doctor. - Vital Signs Vital signs: Temp Pulse Resp BP Pulse Ox 97.9 F 91 15 148/89 H 94 07/25/19 20:10 07/25/19 20:10 07/25/19 20:10 07/25/19 20:10 07/25/19 20:10 Discharge - Discharge Clinical Impression: Medication refill, Insulin dependent diabetes mellitus Condition: Stable Disposition: HOME, SELF-CARE Instructions: Insulin ([facility]) Additional Instructions: Return immediately for any new or worsening symptoms Followup with your primary care provider your medication refills Prescriptions: Insulin Lispro [Humalog] 100 unit SQ ASDIR PRN #30 ml PRN Reason: Referrals: JOE DODGE MD [Primary Care Provider] - Follow up tomorrow
== END 2019-07-25 20:50 | disposition home or self-care (01) ==
LOC: ER 19:49
DX: Z76.0 Encounter for issue of repeat prescription (principal); E10.9 Type 1 diabetes mellitus without complications; Z79.4 Long term (current) use of insulin; Z96.41 Presence of insulin pump (external) (internal)
CPT/HCPCS: 99281

== ENCOUNTER 2019-09-19 20:18 | Emergency (ER) | payer MEDICAID ==
[2019-09-19 20:27] VITALS: BP 144/95
--- NOTE | 2019-09-19 20:40 | ER Document Report ---
HPI - HPI Time Seen by Provider: 09/19/19 20:30 Pain Level: Denies Context: CHIEF COMPLAINT: Refill of insulin HPI: 44-year-old insulin-dependent diabetic presenting for refill of insulin. Has no physical complaints today. States that he does have a primary care pro vider but was unable to see them to get a refill today. Patient does use an insulin pump. ROS: See HPI - all other systems were reviewed and are otherwise negative Constitutional: no fever Eyes: no drainage, no blurred vision ENT: no runny nose, no sore throat Cardiovascular: no chest pain Resp: no SOB, no cough GI: no vomiting, no diarrhea, no abdominal pain : no dysuria Integumentary: no rash Allergy: no hives Musculoskeletal: no extremity pain or swelling Neurological: no numbness/tingling, no weakness MEDICATIONS: I agree with the patient medications as charted by the RN. ALLERGIES: I agree with the allergies as charted by the RN. PAST MEDICAL HISTORY/PAST SURGICAL HISTORY: Reviewed and agree as charted by RN. SOCIAL HISTORY: Reviewed and agree as charted by RN. FAMILY HISTORY: No significant familial comorbid conditions directly related to patient complaint EXAM: Reviewed vital signs as charted by RN. CONSTITUTIONAL: Alert and oriented and responds appropriately to questions. Well-appearing; well-nourished HEAD: Normocephalic; atraumatic EYES: Conjunctivae clear, sclerae non-icteric ENT: normal nose; no rhinorrhea; moist mucous membranes; pharynx without lesions noted NECK: Supple without meningismus CARD: RRR; no murmurs, no clicks, no rubs, no gallops RESP: Normal chest excursion without splinting or tachypnea; breath sounds clear and equal bilaterally; no wheezes, no rhonchi, no rales ABD/GI: Normal bowel sounds; non-distended; soft, non-tender BACK: The back appears normal EXT: Normal ROM in all joints, no cyanosis, no effusions, no edema SKIN: Normal color for age and race; warm; dry; good turgor NEURO: Moves all extremities equally; Motor and sensory function intact PSYCH: The patient's mood and manner are appropriate. Grooming and personal hygiene are appropriate. MDM: 44-year-old male requesting refill of insulin. He uses Humalog vials for his insulin pump. We will give the patient 1 refill tonight, he is to follow-up with his PCP for further refills - REPRODUCTIVE Reproductive: DENIES: : Past Medical History - Social History Smoking Status: Unknown if Ever Smoked Family History: None, Reviewed & Not Pertinent Patient has suicidal ideation: No Patient has homicidal ideation: No Endocrine Medical History: Reports: Hx Diabetes Mellitus Type 1 Renal/ Medical History: Denies: Hx Peritoneal Dialysis Past Surgical History: Reports: Hx Orthopedic Surgery - finger - Immunizations Immunizations up to date: Yes Hx Diphtheria, Pertussis, Tetanus Vaccination: Yes Vertical Provider Document - INFECTION CONTROL TRAVEL OUTSIDE OF THE [place] IN LAST 30 DAYS: No Course - Vital Signs Vital signs: Temp Pulse Resp BP Pulse Ox 98.1 F 90 18 144/95 H 95 09/19/19 20:24 09/19/19 20:24 09/19/19 20:24 09/19/19 20:24 09/19/19 20:24 Discharge - Discharge Clinical Impression: Medication refill Condition: Stable Disposition: HOME, SELF-CARE Additional Instructions: Follow-up with your primary care provider for further refills of your medications Prescriptions: Insulin Lispro [Humalog Insulin (Lispro) 100 unit/mL] 0 - 12 unit SUBCUT ACHSP PRN #1 vial PRN Reason: Referrals: JOE DODGE MD [Primary Care Provider] - Follow up as needed
== END 2019-09-19 20:43 | disposition home or self-care (01) ==
LOC: ER 20:18
DX: Z76.0 Encounter for issue of repeat prescription (principal); E10.9 Type 1 diabetes mellitus without complications; Z79.4 Long term (current) use of insulin; Z96.41 Presence of insulin pump (external) (internal)
CPT/HCPCS: 99281